=== PATIENT | female | born 1980 | race Caucasian/White ===

== ENCOUNTER 2017-02-23 19:06 | Emergency (ER) | payer OTHER ==
[~2017-02-23] VITALS: Ht 152.4 cm; Wt 58.1 kg
[~2017-02-23 19:06] MED LIST: ALBU8HFA2 INH; ALPR.5 PO; AZIT250 PO; Ativan1 MG PO; BELPTAB PO; CARI350 PO; CEPH500 PO; CETI10 PO; CRUTCH3 USE; CYAN500 PO; CYCL10 PO; Catapres0.1 MG PO; DIPATR PO; FAMO20 PO; FISH1000 PO; FLAX PO; HYDACE10B PO; HYDACE5 PO; HYDACE7.5 PO; HYDHCL25 PO; IBUP600 PO; IBUP800 PO; METPRE4DP PO; NAPR500 PO; OXYACE5T PO; OXYC10TA19 PO; PERM5TC TOP; PROM25 PO; PROMETHAZINE-D473 ML PO; PSEU30 PO; RXOXYACE PO; RXTRAM50 PO; SULTRIDS PO; Sudogest30 MG PO; TRAM50 PO
[2017-02-23 20:48] LABS: Source, Urine Clean Catch
[2017-02-23 20:53] LABS: Appearance, Urine Hazy (Clear); Bilirubin, Urine Neg (Neg); Blood, Urine 4+ (Neg); Color, Urine Yellow (P-Yellow); Glucose Qualitative, Urine Neg (Neg); Ketones, Urine 1+ (Neg); Leukocyte Esterase, Urine 2+ (Neg); Nitrite, Urine Neg (Neg); Protein, Urine 1+ (Neg); Specific Gravity, Urine 1.025 (1.003-1.022); Urobilinogen, Urine NORM (Normal)
[2017-02-23 21:10] LABS: Specimen Source vaginal
[2017-02-23 21:13] LABS: Bacteria Mod /hpf; Squamous Epithelial Cells Few /hpf (Few)
[2017-02-23 22:12] LABS: Candida species (DNA Probe) Negative (NEGATIVE); G. vaginalis (DNA Probe) Negative (NEGATIVE); T. vaginalis (DNA Probe) Positive (NEGATIVE)
[2017-02-23] MEDS ORDERED: Flagyl500 MG PO (22:20)
[2017-02-25 04:01] LABS: Source vaginal
== END 2017-02-23 22:25 | disposition home or self-care (01) ==
LOC: ER 19:06
PROVIDERS: Physician Assistant
DX: A59.8 Trichomoniasis of other sites (principal); F17.200 Nicotine dependence, unspecified, uncomplicated
CPT/HCPCS: 81001; 81025; 87086; 87480; 87491; 87510; 87591; 87660; 96372; 99284; J0696

== ENCOUNTER 2017-03-25 02:56 | Emergency (ER) | payer SELFPAY ==
[~2017-03-25] VITALS: Ht 152.4 cm; Wt 59.0 kg
[~2017-03-25 02:56] MED LIST changes: +Flagyl500 MG PO
== END 2017-03-25 06:05 | disposition home or self-care (01) ==
LOC: ER 02:56
DX: T14.8XXA Other injury of unspecified body region, initial encounter (principal); Z88.0 Allergy status to penicillin; Z88.8 Allergy status to other drugs, medicaments and biological substances; Z88.5 Allergy status to narcotic agent; F17.200 Nicotine dependence, unspecified, uncomplicated; X58.XXXA Exposure to other specified factors, initial encounter
CPT/HCPCS: 99282

== ENCOUNTER 2018-03-02 01:11 | Emergency (ER) | payer OTHER | END 2018-03-02 01:47 | disposition left against medical advice (07) | LOC: ER 01:11 | DX: Z53.21 Procedure and treatment not carried out due to patient leaving prior to being seen by health care provider (principal); R05 Cough ==

== ENCOUNTER → 2022-09-04 | Outpatient (CLI) | payer OTHER ==
[2022-09-04 12:26] LABS: BASOPHILS ABSOLUTE AUTO 0.02 K/mm3 (0.00-0.23); BASOPHILS PERCENT AUTO 0 % (0-2); EOSINOPHILS ABSOLUTE AUTO 0.19 K/mm3 (0.00-0.68); EOSINOPHILS PERCENT AUTO 3 % (0-6); Hematocrit 36.6 % (33.0-51.0); Hemoglobin 11.7 g/dL (11.5-16.0); IMMATURE GRAN ABSOLUTE AUTO 0.02 K/mm3 (0.00-0.10); IMMATURE GRAN PERCENT AUTO 0 % (0-1); LYMPHOCYTES ABSOLUTE AUTO 2.37 K/mm3 (0.84-5.20); LYMPHOCYTES PERCENT AUTO 37 % (21-46); MONOCYTES ABSOLUTE AUTO 0.75 K/mm3 (0.16-1.47); MONOCYTES PERCENT AUTO 12 % (4-13); Mean Corpuscular HGB 25.8 pg (26.0-34.0); Mean Corpuscular Volume 81 fL (80-100); Mean Platelet Volume 10.1 fL (9.1-12.4); NEUTROPHILS ABSOLUTE AUTO 3.01 K/mm3 (1.96-9.15); NEUTROPHILS PERCENT AUTO 47 % (41-73); Platelet Count 381 K/mm3 (150-400); RDW Coefficient Variation 16.5 % (11.7-14.2); RDW Standard Deviation 48.2 fL (35.1-46.3); Red Blood Cell Count 4.53 M/mm3 (3.80-5.20); White Blood Cell Count 6.36 K/mm3 (4.00-11.30)
[2022-09-04 12:35] LABS: Bun/Creatinine Ratio 12.7 (12.0-20.0); Calcium, Blood 9.3 mg/dL (8.5-10.1); Creatinine, Blood 0.71 mg/dL (0.40-1.00); Potassium, Blood 4.4 mmol/L (3.5-5.5); Uric Acid, Blood 4.3 mg/dL (2.6-6.0)
== END | disposition home or self-care (01) ==
LOC: LAB SHORT 12:21 → LAB 12:21
PROVIDERS: Chiropractor
DX: R60.0 Localized edema (principal)
CPT/HCPCS: 80048; 84550; 85025; 85379

== ENCOUNTER → 2023-02-09 | Outpatient (CLI) | payer OTHER ==
[2023-02-25 07:55] LABS: HPV GENOTYPE 16 Not Detected; HPV GENOTYPE 18 Not Detected; HPV HIGH RISK Not Detected; HPV SOURCE Cervical
== END ==
LOC: LAB SHORT 17:59 → LAB 17:59
PROVIDERS: Nurse Practitioner Family
DX: Z12.4 Encounter for screening for malignant neoplasm of cervix (principal)
CPT/HCPCS: 87624; G0123

== ENCOUNTER 2023-08-03 11:08 | Day surgery (SDC) | payer OTHER ==
[~2023-08-03] VITALS: Ht 149.9 cm; Wt 87.5 kg
[2023-08-03] VITALS (15 sets, daily range): BP systolic 105–149; BP diastolic 41–98
[~2023-08-03 11:08] MED LIST changes: +ELIQUIS5 M2 PO; +IBUP400 PO; +MELO7.5 PO; +METH40 PO
[2023-08-03] MEDS ORDERED: Acetaminophen 500 MG Tab PO SCH ×2 (11:45→16:00)
[2023-08-03] MEDS ORDERED: CeFAZolin Sodium 2,000 MG in NS 100 ML IV SCH ×2 (11:45→22:15)
[2023-08-03] MEDS ORDERED: Ropivacaine 0.5% HCl/Pf 123.125 MG,EPINEPHrine HCL 0.25 MG,Ketorolac Tromethamine 15 MG... INFIL SCH (11:45)
[2023-08-03] MEDS ORDERED: OxyCODONE HCL 10 MG TABCR PO SCH (11:45)
[2023-08-03] MEDS ORDERED: Lactated Ringer's 1,000 ML IV SCH ×2 (11:45→12:30)
[2023-08-03] MEDS ORDERED: Chlorhexidine Mouth Care 15 ML UDC MT SCH (11:45)
[2023-08-03] MEDS ORDERED: Tranexamic Acid 100 ML IV SCH (11:54)
[2023-08-03] MEDS ORDERED: HYDROmorphone HCl/Pf 1MG SYR IV PRN (12:25)
[2023-08-03] MEDS ORDERED: DiphenhydrAMINE HCL 25 MG Cap PO PRN (12:25)
[2023-08-03] MEDS ORDERED: Magnesium Hydroxide Conc 10 ML UDC PO PRN (12:30)
[2023-08-03] MEDS ORDERED: Promethazine HCl 25 MG Tab PO PRN (12:30)
[2023-08-03] MEDS ORDERED: OxyCODONE HCL 5 MG TAB PO PRN ×2 (12:30)
[2023-08-03] MEDS ORDERED: Bisacodyl 10 MG Supp PR PRN (12:30)
[2023-08-03] MEDS ORDERED: Metoclopramide HCl 5MG / ML 2ML Vial IV PRN (12:35)
[2023-08-03] MEDS ORDERED: Ondansetron HCl 2 MG / ML 2ML Vial IV PRN (12:35)
[2023-08-03] MEDS ORDERED: Ketorolac Tromethamine 15mg Vial IV SCH (12:40)
--- NOTE | 2023-08-03 12:55 | NUR ---
Ambulatory in Day Surgery. Pre-Op teaching done. Pt verbalizes understanding. History, Chart, Medications and Allergies reviewed before start of procedure.Patient confirms NPO status and agrees with scheduled surgery. Patient States Post-Procedure ride home has been arranged.
[2023-08-03] MEDS ORDERED: propofoL 100 ML IV ONE (13:34)
[2023-08-03] MEDS ORDERED: propofoL 50 ML IV ONE (13:35)
[2023-08-03] MEDS ORDERED: Midazolam HCl 1MG / ML 2ML Vial ONE (14:10)
[2023-08-03] MEDS ORDERED: Dexamethasone Sod Phos 10 MG/ML 1ML VIAL ONE (14:33)
[2023-08-03] MEDS ORDERED: Ondansetron HCl 2 MG / ML 2ML Vial ONE (14:33)
[2023-08-03] MEDS ORDERED: Ketorolac Tromethamine 30mg Vial ONE (15:42)
--- NOTE | 2023-08-03 19:31 | NUR ---
SHIFT SUMMARY LATE POST OP, BUT DOING WELL. PAIN INCREASED AFTER SPINAL BEGAN WEARING OFF. REQUIRING 2 OXY, WAS ABLE TO GET TO BSC DESPITE BEHAIND BEING NUMB STILL, BUT NO VOID AT THIS POINT. SURG SITE WNL.
[2023-08-03] MEDS ORDERED: Apixaban 5 MG Tab PO SCH (21:00)
[2023-08-03] MEDS ORDERED: Docusate Sodium 100 MG Cap PO SCH (21:00)
[2023-08-04 05:28] VITALS: BP 118/69
[2023-08-04 06:01] LABS: BASOPHILS ABSOLUTE AUTO 0.01 K/mm3 (0.00-0.23); BASOPHILS PERCENT AUTO 0 % (0-2); EOSINOPHILS PERCENT AUTO 0 % (0-6); Hematocrit 38.9 % (33.0-51.0); Hemoglobin 12.6 g/dL (11.5-16.0); IMMATURE GRAN ABSOLUTE AUTO 0.04 K/mm3 (0.00-0.10); IMMATURE GRAN PERCENT AUTO 0 % (0-1); LYMPHOCYTES ABSOLUTE AUTO 1.73 K/mm3 (0.84-5.20); LYMPHOCYTES PERCENT AUTO 16 % (21-46); MONOCYTES ABSOLUTE AUTO 0.29 K/mm3 (0.16-1.47); MONOCYTES PERCENT AUTO 3 % (4-13); Mean Corpuscular HGB 29.2 pg (26.0-34.0); Mean Corpuscular HGB Conc 32.4 g/dL (31.5-36.5); Mean Corpuscular Volume 90 fL (80-100); Mean Platelet Volume 9.7 fL (9.1-12.4); NEUTROPHILS ABSOLUTE AUTO 8.58 K/mm3 (1.96-9.15); NEUTROPHILS PERCENT AUTO 81 % (41-73); Platelet Count 412 K/mm3 (150-400); RDW Coefficient Variation 15.1 % (11.7-14.2); RDW Standard Deviation 50.2 fL (35.1-46.3); Red Blood Cell Count 4.31 M/mm3 (3.80-5.20); White Blood Cell Count 10.65 K/mm3 (4.00-11.30)
[2023-08-04 06:40] LABS: Bun/Creatinine Ratio 13.7 (12.0-20.0); Calcium, Blood 9.1 mg/dL (8.5-10.1); Creatinine, Blood 0.51 mg/dL (0.40-1.00); Potassium, Blood 4.3 mmol/L (3.5-5.5)
--- NOTE | 2023-08-04 08:03 | NUR ---
SHIFT SUMMARY NOC. PT POD 1 FOR PARTIAL R KNEE REPLACEMENT. PT'S AQUACEL C/D/I, WITH POLAR PACK. PT MEDICATED FOR PAIN. SENSATION INTACT, PT AMBULATING WELL WITH FWW, GAIT BELT AND SBA. PT RESTED WITH EYES CLOSED AND CALL LIGHT IN REACH.
[2023-08-04 08:12] VITALS: BP 126/77
--- NOTE | 2023-08-04 09:55 | NUR ---
DISCHARGE WORKED w/ THERAPY. EATING, DRINKING, & VOIDING. PLEASANT, UPBEAT, EXCITED FOR DC. DRSGS, SCRIPT, & POLAR PACK GIVEN. ESCORTED OUT VIA WC.
== END 2023-08-04 09:55 | disposition home or self-care (01) ==
LOC: ORSCMMR 11:08 → ORD 12:30 → ORSCMMR 12:30 → SURS 16:30 → ORSCMMR 08-04 09:55 → SURS 08-04 09:55 → ORD 08-10 12:30
PROVIDERS: Orthopaedic Surgery
PROC: 0SRC0NA Replacement of Right Knee Joint with Patellofemoral Synthetic Substitute, Uncemented, Open Approach (ICD-10-PCS; principal; 2023-08-03 12:30)
PROC: 0SRC0LA Replacement of Right Knee Joint with Medial Unicondylar Synthetic Substitute, Uncemented, Open Approach (ICD-10-PCS; principal; 2023-08-03 12:30)
DX: M17.11 Unilateral primary osteoarthritis, right knee (principal); Z86.718 Personal history of other venous thrombosis and embolism; Z79.01 Long term (current) use of anticoagulants; Z79.899 Other long term (current) drug therapy; Z87.891 Personal history of nicotine dependence; M22.41 Chondromalacia patellae, right knee; Z68.37 Body mass index [BMI] 37.0-37.9, adult
CPT/HCPCS: 36415; 73560-RT; 80048; 85025; 97110; 97116; 97162; A9270; C1713; C1776; J0171; J0690; J0735; J1100; J1885; J2250; J2405; J2704; J2795; J7120

== ENCOUNTER → 2024-01-28 | Outpatient (CLI) | payer OTHER ==
[2024-01-29 08:21] LABS: Chlamydia Trachomatis Vaginal NOT DETECTED (NOT DETECT); Neisseria Gonorrhoea Vaginal NOT DETECTED (NOT DETECT)
== END ==
LOC: LAB 18:24 → LAB SHORT 18:24
DX: Z11.3 Encounter for screening for infections with a predominantly sexual mode of transmission (principal)
CPT/HCPCS: 87491; 87591